=== PATIENT | male | born 1965 | race African-American/Black ===

== ENCOUNTER 2019-08-31 09:13 | Emergency (ER) | payer OTHER, SELFPAY ==
[2019-08-31] MEDS ORDERED: Ketorolac Tromethamine 30 MG/ML VIAL ONE (09:44)
--- NOTE | 2019-08-31 10:11 | RAD ---
LEFT SHOULDER 3 VIEWS: Date: 08/31/19 HISTORY: Left shoulder pain. FINDINGS/IMPRESSION: There are degenerative changes in the acromioclavicular joint. No fracture, dislocation, or bony dest ruction identified. POS: DECLAN
== END 2019-08-31 10:03 | disposition home or self-care (01) ==
LOC: SCSER 09:13
DX: S46.912A Strain of unspecified muscle, fascia and tendon at shoulder and upper arm level, left arm, initial encounter (principal); E11.9 Type 2 diabetes mellitus without complications; Z79.84 Long term (current) use of oral hypoglycemic drugs; X50.1XXA Overexertion from prolonged static or awkward postures, initial encounter
CPT/HCPCS: 93005; 96372; J1885